=== PATIENT | female | born 1940 | race Caucasian/White ===

== ENCOUNTER 2022-03-10 10:00 | Outpatient (CLI) | payer BC ==
[~2022-03-10] VITALS: Ht 167.6 cm; Wt 61.2 kg
[~2022-03-10 10:00] MED LIST: MIDAZOLAM HCL 5 MG/5 ML VIAL ONE; SIMETHICONE 40 MG/0.6 ML ML ONE; fentaNYL CITRATE/PF 100 MCG/2 ML AMP ONE
== END 2022-03-10 12:00 | disposition home or self-care (01) ==
LOC: SLB 10:00
PROVIDERS: ATTEND Internal Medicine Gastroenterology
DX: K63.89 Other specified diseases of intestine (principal); Z20.822 Contact with and (suspected) exposure to COVID-19; Z53.8 Procedure and treatment not carried out for other reasons
CPT/HCPCS: 36415 ×2; 87426; 87635; U0003; J2250; J3010

== ENCOUNTER 2022-05-26 05:45 | Day surgery (SDC) | payer BC ==
[~2022-05-26] VITALS: Ht 167.6 cm; Wt 61.2 kg
[2022-05-26] MEDS ORDERED: SIMETHICONE 40 MG/0.6 ML ML ONE (07:06)
[2022-05-26] MEDS ORDERED: fentaNYL CITRATE/PF 100 MCG/2 ML AMP ONE (07:07)
[2022-05-26] MEDS ORDERED: MIDAZOLAM HCL 5 MG/5 ML VIAL ONE (07:10)
[2022-05-26 15:09] VITALS: BP_SYST 115
== END 2022-05-26 09:00 | disposition home or self-care (01) ==
LOC: SMU 05:45 → SDS 05:45
PROVIDERS: ATTEND Internal Medicine Gastroenterology
DX: Z09 Encounter for follow-up examination after completed treatment for conditions other than malignant neoplasm (principal); D12.0 Benign neoplasm of cecum; D12.3 Benign neoplasm of transverse colon; D12.2 Benign neoplasm of ascending colon; K57.30 Diverticulosis of large intestine without perforation or abscess without bleeding; K64.8 Other hemorrhoids; Z86.010 Personal history of colon polyps; K63.89 Other specified diseases of intestine; Z20.822 Contact with and (suspected) exposure to COVID-19; Z79.899 Other long term (current) drug therapy
CPT/HCPCS: 36415 ×2; 45381; 45385; 87426; 88305; 99152; 99153; U0003; G0378; J2250; J3010; 45378; 45382

== ENCOUNTER 2023-05-26 07:40 | Day surgery (SDC) | payer BC ==
[~2023-05-26] VITALS: Ht 170.2 cm; Wt 63.5 kg
[2023-05-26] MEDS ORDERED: fentaNYL CITRATE/PF 100 MCG/2 ML AMP ONE (09:07)
[2023-05-26] MEDS ORDERED: MIDAZOLAM HCL 5 MG/5 ML VIAL ONE (09:07)
[2023-05-26 11:47] VITALS: BP_SYST 113; PULSE 60; RESP 16
== END 2023-05-26 10:00 | disposition home or self-care (01) ==
LOC: SDS 07:40 → SMU 07:43 → SDS 10:00
PROVIDERS: ATTEND Internal Medicine Gastroenterology
DX: Z09 Encounter for follow-up examination after completed treatment for conditions other than malignant neoplasm (principal); K63.5 Polyp of colon; K52.9 Noninfective gastroenteritis and colitis, unspecified; Z86.010 Personal history of colon polyps; Z79.899 Other long term (current) drug therapy
CPT/HCPCS: 45380; 45385; 88305; 99152; 99153; G0378; J2250; J3010